=== PATIENT | male | born 1980 | race Caucasian/White ===

== ENCOUNTER 2024-09-05 13:53 | Outpatient (RCR) | payer BC, SELFPAY | END 2024-09-06 08:40 | disposition home or self-care (01) | LOC: PT 13:53 | PROVIDERS: PCP Family Medicine; Visit Provider Family Medicine | DX: M51.369 Other intervertebral disc degeneration, lumbar region without mention of lumbar back pain or lower extremity pain (principal); M47.817 Spondylosis without myelopathy or radiculopathy, lumbosacral region | CPT/HCPCS: 97110; 97161 ==